=== PATIENT | male | born 1940 ===

== ENCOUNTER 2024-01-29 08:00 | Outpatient (CLI) | payer OTHER ==
[2024-01-29 13:52] LABS: COL ADP 169 SECONDS (56-102); COL EPI 240 SECONDS (82-175)
[2024-01-29] MEDS ORDERED: LINZESS145 MCG PO (14:54)
[2024-01-29] MEDS ORDERED: TAMS0.4C PO (14:55)
[2024-01-29] MEDS ORDERED: FOLIVANE-PLUS1 EACH PO (14:55)
[2024-01-29] MEDS ORDERED: LIPITOR40 MG PO (14:55)
[2024-01-29] MEDS ORDERED: INDAPAMIDE1.25 MG PO (14:56)
== END 2024-01-29 08:01 | disposition home or self-care (01) ==
LOC: LAB 08:00 → ADM 10:00 → CIR.AMB 02-04 10:00 → EDSTATUS 02-04 10:00 → CIR.AMB 02-04 17:30
PROVIDERS: ATTEND Colon & Rectal Surgery
DX: K62.4 Stenosis of anus and rectum (principal); K64.2 Third degree hemorrhoids; D12.9 Benign neoplasm of anus and anal canal; D69.6 Thrombocytopenia, unspecified; D69.9 Hemorrhagic condition, unspecified

== ENCOUNTER → 2024-04-29 06:07 | Outpatient (CLI) | payer OTHER ==
[~2024-04-29 06:07] MED LIST: FOLIVANE-PLUS1 EACH PO; INDAPAMIDE1.25 MG PO; LINZESS145 MCG PO; LIPITOR40 MG PO; TAMS0.4C PO
[2024-04-29 07:04] LABS: HEMATOCRIT 33.5 % (39.0-48.0); HEMOGLOBIN 12.3 g/dL (13-16.00); MEAN CELL VOLUME 89.5 fL (80.0-100.00); MEAN CORPUSCULAR HEMOGLOBIN 32.8 pg (27.00-32.0); MEAN CORPUSCULAR HGB CONC 36.6 g/dl (32.0-36.0); RED BLOOD COUNT 3.75 M/uL (4.00-6.00); RED CELL DISTRIBUTION WIDTH 14.2 % (11.5-14.5)
[2024-04-29 07:11] LABS: PLATELET COUNT 137 K/uL (150-450)
[2024-04-29 07:27] LABS: INR 0.97; PARTIAL THROMBOPLASTIN TIME 25.8 SECONDS (22.0-34.0)
[2024-04-29 07:28] LABS: PROTHROMBIN TIME 10.6 SECONDS (9.0-11.5)
[2024-04-29 07:30] LABS: % SATURACION 22.9 % (20-50); ALBUMIN 3.8 gm/dL (3.4-5.0); BILIRUBIN TOTAL 0.74 mg/dL (0.3-1.2); CALCIUM 9.1 mg/dL (8.5-10.1); CREATININE SERUM 0.86 mg/dL (0.70-1.30); FERRITIN 79.6 NG/ML (26-388); GFR 84.72; GLOBULINA 2.9 G/DL (2.4-3.5); POTASSIUM 4.62 mEq/L (3.5-5.1); TOTAL PROTEIN 6.7 gm/dL (6.4-8.2)
[2024-04-29 14:22] LABS: FOLIC ACID > 20.00 ng/ml (4.78-20)
== END | disposition home or self-care (01) ==
LOC: LAB 06:07
PROVIDERS: ATTEND Internal Medicine Hematology & Oncology
DX: C18.6 Malignant neoplasm of descending colon (principal); C44.222 Squamous cell carcinoma of skin of right ear and external auricular canal; D68.32 Hemorrhagic disorder due to extrinsic circulating anticoagulants; I10 Essential (primary) hypertension; E78.2 Mixed hyperlipidemia; K62.4 Stenosis of anus and rectum; D50.8 Other iron deficiency anemias; R74.02 Elevation of levels of lactic acid dehydrogenase [LDH]; K76.89 Other specified diseases of liver; D68.8 Other specified coagulation defects; E56.1 Deficiency of vitamin K

== ENCOUNTER 2024-07-07 05:12 | Day surgery (SDC) | payer OTHER ==
[2024-07-07] MEDS ORDERED: CEFTRIAXONE SODIUM 2,000 MG VIAL IV ONE (11:15)
[2024-07-07] MEDS ORDERED: LIDOCAINE HCL 1%/EPINEPHRINE 20ML VIAL IJ ONE (11:15)
[2024-07-07] MEDS ORDERED: BUPIVACAINE HCL 30 ML VIAL IJ ONE (11:15)
[2024-07-07] MEDS ORDERED: POVIDONE-IODINE 118 ML BOTT TOP ONE (11:15)
[2024-07-07] MEDS ORDERED: METRONIDAZOLE/SODIUM CHLORIDE 500 MG/100 ML PIGGYBACK IV ONE (11:15)
[2024-07-07] MEDS ORDERED: DIBUCAINE 30 GM TUBE RECTAL ONE (11:15)
[2024-07-07] MEDS ORDERED: HEMOSTATIC MATRIX 1 KIT KIT TOP ONE (11:15)
== END 2024-07-07 15:25 | disposition home or self-care (01) ==
LOC: CIR.AMB 05:12
PROVIDERS: ATTEND Colon & Rectal Surgery
DX: C21.0 Malignant neoplasm of anus, unspecified (principal); K64.2 Third degree hemorrhoids; K64.4 Residual hemorrhoidal skin tags; D12.9 Benign neoplasm of anus and anal canal